=== PATIENT | male | born 1960 | race Caucasian/White ===

== ENCOUNTER 2021-02-18 09:07 | Outpatient (CLI) | payer BC | END 2021-02-18 09:08 | disposition home or self-care (01) | LOC: BICRAD 09:07 | PROVIDERS: ATTEND Physician Assistant | DX: M54.5 Low back pain (principal); M47.816 Spondylosis without myelopathy or radiculopathy, lumbar region | CPT/HCPCS: 72100 ==

== ENCOUNTER 2022-08-14 09:00 | Inpatient (IN) | payer BC ==
[2022-08-14 09:41] LABS: Hemoglobin 16.1 g/dL (13.5-17.5); Mean Corpuscular HGB CONC 34.8 g/dL (32.0-36.0); Mean Corpuscular Hemoglobin 32.5 pg (27.0-33.0); Mean Corpuscular Volume 93.1 fl (81.2-95.1); Mean Platelet Volume 11.2 fl (7.4-10.4); Platelet Count 225 10x3/uL (150-450); RBC Distribution Width 12.8 % (11.5-14.5); Red Blood Cell (RBC) Count 4.96 10x6/uL (4.32-5.72); White Blood Cell (WBC) Count 7.2 10x3/uL (3.5-10.5)
[2022-08-14 09:51] LABS: Anion Gap 14 mmol/L (10-20); BUN (Urea Nitrogen) 25 mg/dL (8.4-25.7); Calc. Creatinine Clearance 0 mL/min (70-130); Calcium 10.6 mg/dL (7.8-10.44); Carbon Dioxide 27 mmol/L (22-29); Chloride 103 mmol/L (98-107); Estimated GFR 84; Glucose 176 mg/dL (70-105); Potassium 4.4 mmol/L (3.5-5.1); Sodium 140 mmol/L (136-145)
[2022-08-15] MEDS ORDERED: fentaNYL PF 100 MCG/2 ML SYRINGE ONE (06:18)
[2022-08-15] MEDS ORDERED: Midazolam HCl 5 mg/5 ml Vial ONE (06:18)
[2022-08-15] MEDS ORDERED: niCARdipine 25 MG/10 ML VIAL ONE (06:19)
[2022-08-15] MEDS ORDERED: Insulin Regular 300 UNITS/3 ML VIAL ONE (06:19)
[2022-08-15] MEDS ORDERED: Rocuronium Bromide 50 MG/5 ML VIAL ONE (06:19)
[2022-08-15] MEDS ORDERED: SUGAMMADEX SODIUM 200 MG/2 ML VIAL ONE (06:19)
[2022-08-15] MEDS ORDERED: Albumin 5% 500 ML ONE (06:20)
[2022-08-15] MEDS ORDERED: Lidocaine 1% MPF 2 ML VIAL ONE (06:25)
[2022-08-15] MEDS ORDERED: Heparin 10,000 UNITS/1 ML VIAL 30,000 UNITS in Sodium Chloride 0.9% 1,000 ML FS SCH (07:00)
[2022-08-15 07:25] LABS: SARS-CoV-2 NAA Rapid Test Not Detected (NotDetected)
[2022-08-15] MEDS ORDERED: Esmolol 100 MG/10 ML VIAL ONE (07:29)
[2022-08-15] MEDS ORDERED: Papaverine 60 MG/2 ML VIAL ONE (07:29)
[2022-08-15] MEDS ORDERED: Norepinephrine 4 MG/4 ML VIAL ONE (07:29)
[2022-08-15] MEDS ORDERED: Heparin 30,000 units/30 ml VIAL ONE (07:29)
[2022-08-15] MEDS ORDERED: Potassium Chloride 60 MEQ/30 ML VIAL ONE (07:29)
[2022-08-15] MEDS ORDERED: Lidocaine 2% PF 100 mg/5 ml Syringe ONE (07:29)
[2022-08-15] MEDS ORDERED: Thrombin 5000 UNITS/5 ML VIAL ONE (07:29)
[2022-08-15] MEDS ORDERED: Heparin 5,000 UNITS/ML VIAL ONE (07:29)
[2022-08-15] MEDS ORDERED: Mannitol 12.5 GM/50 ML ONE (07:29)
[2022-08-15] MEDS ORDERED: Sodium Bicarb 50 MEQ/50 ML VIAL ONE (07:29)
[2022-08-15] MEDS ORDERED: Rocuronium Bromide 10 MG/ML (10ML VIAL) ONE (07:29)
[2022-08-15] MEDS ORDERED: Calcium Chloride 1 GM/10 ML Abboject SYRINGE ONE (07:29)
[2022-08-15] MEDS ORDERED: Aminocaproic Acid 5 GM/20 ML VIAL ONE (07:29)
[2022-08-15] MEDS ORDERED: Magnesium Sulfate 1 GM/2 ML VIAL ONE (07:29)
[2022-08-15] MEDS ORDERED: Cardioplegic Soln 1,000 ML BAG ONE (07:29)
[2022-08-15] MEDS ORDERED: PROPOFOL 200 MG/20 ML VIAL ONE (07:29)
[2022-08-15] MEDS ORDERED: Protamine Sulfate 50 MG/5 ML VIAL ONE (07:29)
[2022-08-15] MEDS ORDERED: PHENYLEPHRINE-NS 100 MCG/ML 10 ML SYRINGE ONE (08:07)
[2022-08-15] MEDS ORDERED: Bisacodyl 5 MG TAB PO PRN (10:59)
[2022-08-15] MEDS ORDERED: Acetaminophen 325 MG TAB PO PRN (10:59)
[2022-08-15] MEDS ORDERED: Ondansetron PF 4 MG/2 ML Vial IVP PRN (10:59)
[2022-08-15] MEDS ORDERED: niCARdipine 25 MG in Sodium Chloride 0.9% 250 ML 250 ML IVPB PRN (10:59)
[2022-08-15] MEDS ORDERED: Morphine 4 MG/ML VIAL SLOW IVP PRN (10:59)
[2022-08-15] MEDS ORDERED: NOREPINEPHRINE 8 MG/250 ML-D5W 250 ML IVPB PRN (10:59)
[2022-08-15] MEDS ORDERED: hydrALAZINE 20 MG/ML VIAL SLOW IVP PRN (10:59)
[2022-08-15] MEDS ORDERED: Hetastarch 6% 500 ML 500 ML IVPB PRN (10:59)
[2022-08-15] MEDS ORDERED: Post-Op Insulin Drip Protocol IVPB ONE (10:59)
[2022-08-15] MEDS ORDERED: Bisacodyl 10 MG SUPP PR PRN (10:59)
[2022-08-15] MEDS ORDERED: Potassium Chloride 20 MEQ/100 ML PREMIX BAG IVPB PRN (10:59)
[2022-08-15] MEDS ORDERED: Mag-Al 1200 mg/1200 mg/30 ML UDCUP PO PRN (10:59)
[2022-08-15] MEDS ORDERED: FENTANYL 50 MCG/ML 1 ML VIAL SLOW IVP PRN (10:59)
[2022-08-15] MEDS ORDERED: Nitroglycerin 50 MG/250 ML BOT 250 ML IVPB PRN (10:59)
[2022-08-15] MEDS ORDERED: Promethazine HCl 25 MG/ML VIAL IM PRN (10:59)
[2022-08-15] MEDS ORDERED: HYDROcodone/Acetaminophen 5/325 mg Tablet PO PRN (10:59)
[2022-08-15] MEDS ORDERED: DOPamine 400 MG/D5W 250 ML 250 ML IVPB PRN (10:59)
[2022-08-15] MEDS ORDERED: Guaifenesin DM 100-10/5 ML UDCUP PO PRN (10:59)
[2022-08-15 11:11] LABS: Actual Bicarbonate (HCO3a) 24.1 mEq/L (22-28); Base Excess (BEa) -1.6 mEq/L (-2.0 to +3.0); CO2 Tension 44.6 mmHg (35.0-45.0); Calcium, Ionized (arterial) 1.11 mmol/L (1.12-1.30); Carboxyhemoglobin (COHb) 0.9 gm% (0.0-3.0); Potassium - ABG Lab 3.81 mmol/L (3.70-5.30); pH, Arterial 7.35 (7.35-7.45)
[2022-08-15 11:13] LABS: Puncture Site Arterial Line
[2022-08-15] MEDS ORDERED: Nitroglycerin 50 MG/250 ML BOT 250 ML ONE (11:17)
[2022-08-15] MEDS ORDERED: Morphine 4 MG/ML VIAL ONE (11:17)
[2022-08-15 11:25] LABS: #Eosinphils 0.1 thou/uL (0.0-0.7); #Lymphocytes 1.8 thou/uL (1.20-3.40); #Monocytes 1.2 thou/uL (0.11-0.59); #Neutrophils 13.7 thou/uL (1.40-6.50); %Basophils 0.2 % (0.0-1.0); %Eosinophils 0.6 % (0.0-10.0); %Lymphocytes 10.6 % (21.0-51.0); %Monocytes 7.3 % (0.0-10.0); %Neutrophils 81.3 % (42.0-75.0); Hemoglobin 13.6 g/dL (14.0-18.0); Mean Corpuscular HGB CONC 33.2 g/dL (32.0-36.0); Mean Corpuscular Hemoglobin 32.5 pg (27.0-31.0); Mean Corpuscular Volume 97.9 fl (78.0-98.0); Mean Platelet Volume 8.8 fL (7.4-10.4); Platelet Count 146 10x3/uL (130-400); RBC Distribution Width 11.7 % (11.5-14.5); Red Blood Cell (RBC) Count 4.17 mill/uL (4.70-6.10); White Blood Cell (WBC) Count 16.9 10x3/uL (4.8-10.8)
[2022-08-15] MEDS ORDERED: Dextrose 50% Abboject 50 ML SYRINGE SLOW IVP PRN (11:30)
[2022-08-15] MEDS ORDERED: Dextrose 5% in Water 1,000 ML IV PRN (11:30)
[2022-08-15] MEDS ORDERED: HUMULIN R 100 UNITS in Sodium Chloride 0.9% 100 ML IVPB SCH (11:30)
[2022-08-15] MEDS ORDERED: Insulin Regular 300 UNITS/3 ML VIAL SC PRN (11:30)
[2022-08-15 11:35] LABS: INR-International Normal Ratio 1.3; PTT 28.1 sec (22.9-36.1); Prothrombin Time 16.3 sec (12.0-14.7)
[2022-08-15] MEDS ORDERED: Metoprolol Tartrate 5 MG/5 ML VIAL ONE (11:35)
[2022-08-15 11:42] LABS: Anion Gap 11 mmol/L (10-20); BUN (Urea Nitrogen) 18 mg/dL (8.4-25.7); Calc. Creatinine Clearance 131 mL/min (70-130); Calcium 7.8 mg/dL (7.8-10.44); Carbon Dioxide 21 mmol/L (22-29); Chloride 111 mmol/L (98-107); Estimated GFR 103; Glucose 154 mg/dL (70-105); Potassium 3.9 mmol/L (3.5-5.1); Sodium 139 mmol/L (136-145)
[2022-08-15] MEDS ORDERED: Metoprolol Tartrate 5 MG/5 ML VIAL IVP SCH ×2 (11:45)
[2022-08-15] MEDS: D5 1/2 NS w/20 mEq KCL 1,000 ML IV SCH (12:40)
[2022-08-15] MEDS: Ketorolac Tromethamine 30 MG/ML VIAL IVP SCH ×2 (12:41→18:27)
[2022-08-15] MEDS ORDERED: Metoprolol Tartrate 5 MG/5 ML VIAL IVP PRN (12:45)
[2022-08-15 14:01] LABS: CO2 Tension 31.6 mmHg (35.0-45.0); Calcium, Ionized (arterial) 1.07 mmol/L (1.12-1.30); Carboxyhemoglobin (COHb) 0.9 gm% (0.0-3.0); Hemoglobin (Hb) 15.1 g/dL (14.0-18.0); O2 Tension (PaO2), arterial 89.7 mmHg (> 80.0); Potassium - ABG Lab 3.17 mmol/L (3.70-5.30); pH, Arterial 7.37 (7.35-7.45)
[2022-08-15] MEDS: CEFAZOLIN 2 GM in Sodium Chloride 0.9% 100 ML IVPB SCH ×2 (14:08→21:11)
[2022-08-15] MEDS: FENTANYL 50 MCG/ML 1 ML VIAL SLOW IVP PRN ×2 (14:29→20:01)
[2022-08-15 14:47] LABS: Puncture Site Arterial Line
[2022-08-15] MEDS: HYDROcodone/Acetaminophen 5/325 mg Tablet PO PRN ×2 (16:51→21:12)
[2022-08-15 19:12] LABS: Hemoglobin 13.9 g/dL (14.0-18.0)
[2022-08-15 19:31] LABS: Potassium 4.1 mmol/L (3.5-5.1)
[2022-08-15 19:32] LABS: Glucose 243 mg/dL (70-105)
[2022-08-15] MEDS: Famotidine/PF 20 mg/2ml Vial SLOW IVP SCH (20:18)
[2022-08-15] MEDS ORDERED: Atorvastatin Calcium 20 MG TAB PO SCH (21:00)
[2022-08-16] MEDS: Ketorolac Tromethamine 30 MG/ML VIAL IVP SCH ×4 (00:10→17:48)
[2022-08-16] MEDS: D5 1/2 NS w/20 mEq KCL 1,000 ML IV SCH (02:02)
[2022-08-16 04:30] LABS: #Lymphocytes 1.1 thou/uL (1.20-3.40); #Monocytes 1.2 thou/uL (0.11-0.59); #Neutrophils 9.5 thou/uL (1.40-6.50); %Basophils 0.1 % (0.0-1.0); %Eosinophils 0.1 % (0.0-10.0); %Lymphocytes 9.1 % (21.0-51.0); %Monocytes 10.3 % (0.0-10.0); %Neutrophils 80.5 % (42.0-75.0); Hemoglobin 13.7 g/dL (14.0-18.0); Mean Corpuscular HGB CONC 33.2 g/dL (32.0-36.0); Mean Corpuscular Hemoglobin 32.5 pg (27.0-31.0); Mean Platelet Volume 8.9 fL (7.4-10.4); Platelet Count 151 10x3/uL (130-400); RBC Distribution Width 12.1 % (11.5-14.5); Red Blood Cell (RBC) Count 4.22 mill/uL (4.70-6.10); White Blood Cell (WBC) Count 11.8 10x3/uL (4.8-10.8)
[2022-08-16 04:50] LABS: Anion Gap 9 mmol/L (10-20); BUN (Urea Nitrogen) 15 mg/dL (8.4-25.7); Calc. Creatinine Clearance 159 mL/min (70-130); Carbon Dioxide 23 mmol/L (22-29); Chloride 109 mmol/L (98-107); Estimated GFR 106; Glucose 100 mg/dL (70-105); Potassium 3.8 mmol/L (3.5-5.1); Sodium 137 mmol/L (136-145)
[2022-08-16] MEDS: CEFAZOLIN 2 GM in Sodium Chloride 0.9% 100 ML IVPB SCH (05:19)
[2022-08-16] MEDS: HYDROcodone/Acetaminophen 5/325 mg Tablet PO PRN ×2 (05:19→09:15)
[2022-08-16] MEDS ORDERED: Dextrose 5% in Water 1,000 ML IV PRN (06:40)
[2022-08-16] MEDS ORDERED: Dextrose 50% Abboject 50 ML SYRINGE SLOW IVP PRN (06:40)
[2022-08-16] MEDS: Aspirin 325 MG TAB PO SCH (08:57)
[2022-08-16] MEDS: Famotidine/PF 20 mg/2ml Vial SLOW IVP SCH (08:57)
[2022-08-16] MEDS: GLYXAMBI PO SCH (08:58)
[2022-08-16] MEDS: Magnesium 2 GM/50 ML(in water) 2 GM in Premix Bag 1 BAG IVPB SCH (08:58)
[2022-08-16] MEDS: Polyethylene Glycol 3350 17 GM Packet PO SCH (08:59)
[2022-08-16] MEDS ORDERED: LINAGLIPTIN PO SCH (09:00)
[2022-08-16] MEDS ORDERED: [UNRECOGNIZED DRUG - OTHER] PO SCH (09:00)
[2022-08-16] MEDS ORDERED: EMPAGLIFLOZIN PO SCH (09:00)
[2022-08-16] MEDS: Insulin Regular 300 UNITS/3 ML VIAL SC PRN ×3 (11:16→21:19)
[2022-08-16] MEDS ORDERED: Insulin Glargine 30 UNITS/0.3 ML VIAL SC PRN (11:24)
[2022-08-16] MEDS ORDERED: Zolpidem Tartrate 5 MG TAB PO PRN (13:09)
[2022-08-16] MEDS ORDERED: Nitroglycerin 0.4 MG TAB (25 Tab Bottle) SL PRN (13:09)
[2022-08-16] MEDS: Famotidine 20 MG TAB PO SCH ×3 (20:48→20:50)
[2022-08-16] MEDS: Atorvastatin Calcium 40 MG TAB PO SCH (20:49)
[2022-08-16] MEDS: traMADol HCl 50 MG TAB PO PRN (20:52)
[2022-08-17] MEDS: Ketorolac Tromethamine 30 MG/ML VIAL IVP SCH ×5 (01:32→23:43)
[2022-08-17] MEDS: traMADol HCl 50 MG TAB PO PRN (05:50)
[2022-08-17] MEDS: Polyethylene Glycol 3350 17 GM Packet PO SCH (07:30)
[2022-08-17] MEDS: Aspirin 325 MG TAB PO SCH (07:40)
[2022-08-17] MEDS: Famotidine 20 MG TAB PO SCH ×2 (07:40→20:39)
[2022-08-17] MEDS: GLYXAMBI PO SCH (07:41)
[2022-08-17] MEDS: Magnesium 2 GM/50 ML(in water) 2 GM in Premix Bag 1 BAG IVPB SCH (08:09)
[2022-08-17 11:16] VITALS: BMI 26.4
[2022-08-17] MEDS: Insulin Regular 300 UNITS/3 ML VIAL SC PRN (11:27)
[2022-08-17] MEDS: Metoprolol Tartrate 25 MG TAB PO SCH (20:39)
[2022-08-17] MEDS: Atorvastatin Calcium 40 MG TAB PO SCH (20:40)
[2022-08-18] MEDS: Ketorolac Tromethamine 30 MG/ML VIAL IVP SCH ×2 (06:09→11:53)
[2022-08-18] MEDS: Metoprolol Tartrate 25 MG TAB PO SCH (07:31)
[2022-08-18] MEDS: Aspirin 325 MG TAB PO SCH (07:32)
[2022-08-18] MEDS: Famotidine 20 MG TAB PO SCH (07:33)
[2022-08-18] MEDS: GLYXAMBI PO SCH (07:33)
[2022-08-18] MEDS: Polyethylene Glycol 3350 17 GM Packet PO SCH (07:36)
[2022-08-18 15:42] VITALS: BP 142/74
[2022-08-18 17:24] VITALS: TEMP 98.8
== END 2022-08-18 18:38 | disposition home or self-care (01) | DRG 236 ==
LOC: SURG A 08-15 05:48 → CCU 08-15 10:27 → IMCU/EMU 08-18 13:36
PROVIDERS: ADMIT Thoracic Surgery (Cardiothoracic Vascular Surgery); ATTEND Thoracic Surgery (Cardiothoracic Vascular Surgery)
PROC: 0210099 Bypass Coronary Artery, One Artery from Left Internal Mammary with Autologous Venous Tissue, Open Approach (ICD-10-PCS; principal; 2022-08-15)
PROC: 0210093 Bypass Coronary Artery, One Artery from Coronary Artery with Autologous Venous Tissue, Open Approach (ICD-10-PCS; 2022-08-15)
PROC: 06BQ3ZZ Excision of Left Saphenous Vein, Percutaneous Approach (ICD-10-PCS; 2022-08-15)
PROC: 02L70CK Occlusion of Left Atrial Appendage with Extraluminal Device, Open Approach (ICD-10-PCS; 2022-08-15)
DX: I25.10 Atherosclerotic heart disease of native coronary artery without angina pectoris (principal); E11.9 Type 2 diabetes mellitus without complications; E78.5 Hyperlipidemia, unspecified; Z79.899 Other long term (current) drug therapy; Z79.84 Long term (current) use of oral hypoglycemic drugs
CPT/HCPCS: 36415; 36416; 36430; 71045; 80048; 82805; 85025; 85027; 85610; 85730; 86850; 86900; 86901; 93005; 93010; 93798; 94002; C1751; C1776; J1642; J1644; J1815; J1885; J2001; J2150; J2250; J2270; J2440; J2704; J2720; J3010; J3370; J3475; J3480; J3490; P9045; S0017; S0028; U0002